=== PATIENT | female | born 1990 | race Two or more races ===

== ENCOUNTER 2019-03-17 12:43 | Emergency (ER) | payer MEDICAID ==
[~2019-03-17] VITALS: Ht 165.1 cm; Wt 90.7 kg
[~2019-03-17 12:43] MED LIST: CEPHALEXIN500 MG ORAL; NORCO 5-325 TA1 EACH ORAL; TAMSULOSIN HCL0.4 MG ORAL
[2019-03-17] MEDS ORDERED: NKM (12:58)
[2019-03-17] MEDS ORDERED: Metoclopramide 10mg/2ml Inj IM ONE (13:15)
[2019-03-17 13:28] VITALS: BP 121/70
--- NOTE | 2019-03-17 13:29 | NUR ---
ED Nurse Note: Patient walked in to ER c/o abdominal pain with N/V. pt is 26 weeks of . pt aao x4 and ambulatory with steady gait. skin clean and intact. no cardiac or pulmonary distress noted. no vomiting occured since arrival to ER. calm and cooperative.
[2019-03-17] MEDS ORDERED: Metoclopramide 10mg/2ml Inj IVP ONE (13:30)
[2019-03-17] MEDS ORDERED: Dicyclomine HCl 10mg/5ml oral soln ORAL ONE (13:30)
--- NOTE | 2019-03-17 14:18 | Emergency Room Report ---
History of Present Illness General Chief Complaint: Nausea, Vomiting, and Diarrhea Source: Patient Present Illness HPI 28-year-old female presents to the emergency department complaining of 7 out of 10 in severity and cramping epigastric pain with associated nausea and vomiting as well as multiple episodes of diarrhea last night. Patient reports 3-4 episodes of nonbloody vomitus as well as 5-6 episodes of loose stools which she states does not have blood in them and were not black in color. Patient states she recently returned from [place] 2 days ago. Patient states that her symptoms usually resolve after bowel movements however they are intermittent throughout the day. She denies fevers or chills. Patient reports that she is 26 weeks she states she still has feeling moderate amount of movement. She denies lower abdominal pain or cramping. Patient states that she does not suspect that this is related to , he feels confident that it is some sort of stomach bug that she may have, and [place]. Denies persons with similar symptoms. She denies vaginal bleeding or discharge. Patient is she states this is her second that she will be caring to term. She reports no previous related problems in the past. Pt. is reporting concern for dehydration, as she vomits with attempts to rehydrate. Allergies: Coded Allergies: No Known Allergies (Unverified , 03/17/19) Patient History Past Medical History: see triage record Past Surgical History: none Pertinent Family History: none Last Menstrual Period: 09/18/18 Now: Yes - 26 WEEKS : 4 Para: 2 Reviewed Nursing Documentation: PMH: Agreed; PSxH: Agreed Nursing Documentation-[facility] Past Medical History: No Stated History Hx Gastrointestinal Problems: Yes - cholesectomy, frequent UTI Review of Systems All Other Systems: negative except mentioned in HPI Physical Exam Vital Signs Date Time Temp Pulse Resp B/P (MAP) Pulse Ox O2 Delivery O2 Flow Rate FiO2 03/17/19 12:52 98.4 106 18 96 Room Air 03/17/19 13:28 121/70 Sp02 EP Interpretation: reviewed, normal General Appearance: no apparent distress, alert, GCS 15, non-toxic Head: normocephalic, atraumatic Eyes: bilateral eye normal inspection, bilateral eye PERRL ENT: hearing grossly normal, normal voice Neck: full range of motion Respiratory: chest non-tender, lungs clear, normal breath sounds, speaking full sentences Cardiovascular #1: regular rate, rhythm Gastrointestinal: normal bowel sounds - hyper active BS, non tender, soft, non- distended, no guarding, other Genitourinary: normal inspection, no CVA tenderness Musculoskeletal: back normal, gait/station normal, normal range of motion, non- tender Neurologic: alert, oriented x3, responsive, motor strength/tone normal, sensory intact, normal gait, speech normal, grossly normal Psychiatric: judgement/insight normal Skin: normal color, no rash, warm/dry, well hydrated Medical Decision Making PA Attestation Dr. Almaraz is my supervising Physician whom patient management has been discussed with. Diagnostic Impression: Primary Impression: Nausea, vomiting, and diarrhea ER Course 28-year-old female presents to the emergency department complaining of 7 out of 10 in severity and cramping epigastric pain with associated nausea and vomiting as well as multiple episodes of diarrhea last night. Patient reports 3-4 episodes of nonbloody vomitus as well as 5-6 episodes of loose stools which she states does not have blood in them and were not black in color. Patient states she recently returned from [place] 2 days ago. Patient states that her symptoms usually resolve after bowel movements however they are intermittent throughout the day. She denies fevers or chills. Patient reports that she is 26 weeks she states she still has feeling moderate amount of movement. She denies lower abdominal pain or cramping. Patient states that she does not suspect that this is related to , he feels confident that it is some sort of stomach bug that she may have, and [place]. Denies persons with similar symptoms. She denies vaginal bleeding or discharge. Patient is she states this is her second that she will be caring to term. She reports no previous related problems in the past. Pt. is reporting concern for dehydration, as she vomits with attempts to rehydrate. Ddx considered but are not limited to Diverticulitis, acute appy, diarrhea,UC, PUD, GE, pancreatitis, gallstone, complication, early labor or miscarriage Vital signs: are WNL, pt. is afebrile H&PE are most consistent with abdominal pain with N/V during with recent travel hx. ORDERS: - none --Patient is in no acute distress nontoxic in appearance, no significant evidence of dehydration she has a benign abdominal examination. I have no suspicion for acute abdomen at this time ED INTERVENTIONS: -IV NS - Reglan IV - Bentyl PO Patient states after above interventions her symptoms have improved she is able to tolerate oral fluids. Patient reports that she has not been feeling any of the cramping abdominal pains. Patient continues to not have concern for related symptoms. I discussed with this patient strict ED return precautions I also encouraged her to seek [facility] follow-up. DISCHARGE: At this time pt. is stable for d/c to home. Will provide printed patient care instructions, and any necessary prescriptions. Care plan and follow up instructions have been discussed with the patient prior to discharge. Last Vital Signs Date Time Temp Pulse Resp B/P (MAP) Pulse Ox O2 Delivery O2 Flow Rate FiO2 03/17/19 13:28 98.2 86 18 121/70 98 Room Air Status: improved Disposition: HOME, SELF-CARE Condition: Stable Scripts Dicyclomine Hcl* (DICYCLOMINE HCL*) 10 Mg Capsule 10 MG PO QID for diarrhea, #12 CAP Prov: Sarah Ibarra 03/17/19 Metoclopramide Hcl* (REGLAN*) 10 Mg Tablet 10 MG ORAL THREE TIMES A DAY for vomiting, #15 TAB Prov: Sarah Ibarra 03/17/19 Referrals: [facility],REFERRING (PCP) Patient Instructions: Food Choices to Help Relieve Diarrhea, Adult, Nausea and Vomiting, Adult, [id number] Additional Instructions: Take medications as directed. Follow up with a PCP and OBGYN within 3 days, even if your symptoms have resolved. Return sooner to ED if new symptoms occur, or current symptoms become worse. - Please note that this Emergency Department Report was dictated using [employer] baler technology software, occasionally this can lead to erroneous entry secondary to interpretation by the dictation equipment. Sarah Ibarra March 17, 2019 14:18
[2019-03-17] MEDS ORDERED: REGLAN10 MG ORAL (14:20)
[2019-03-17] MEDS ORDERED: DICYCLOMINE HCL10 MG PO (14:20)
[2019-03-17 14:27] VITALS: BP 121/70
--- NOTE | 2019-03-17 14:28 | NUR ---
ER DISCHARGE NOTE: Patient is cleared to be discharged per ERPA, pt is aox4, on room air, with stable vital signs. pt was given dc and prescription instructions, pt was able to verbalize understanding, pt id band and iv site removed without complications. pt is able to ambulate with steady gait. pt took all belongings.
== END 2019-03-17 14:29 | disposition home or self-care (01) ==
LOC: EMR 13:10
DX: O21.9 Vomiting of pregnancy, unspecified (principal); R19.7 Diarrhea, unspecified; O99.612 Diseases of the digestive system complicating pregnancy, second trimester; R10.13 Epigastric pain; Z90.49 Acquired absence of other specified parts of digestive tract; Z3A.26 26 weeks gestation of pregnancy
CPT/HCPCS: 96372; 96374; 99284; J2765; J7040